=== PATIENT | male | born 1990 | race Caucasian/White ===

== ENCOUNTER → 2018-07-27 | Outpatient (CLI) | payer OTHER ==
[~2018-07-27] MED LIST: AGM875T PO; ASP81CT PO; ENAL5TAB PO; EPIN0.3P2 IM; HYDR1TAB PO; LSNP20T PO; OMEP20CA12 PO; PRD50T PO
[2018-07-27 15:14] LABS: HEMOGLOBIN 14.2 G/DL (13.3-17.7); RED CELL DISTRIBUTION WIDTH 12.5 % (10.0-14.5); WHITE BLOOD COUNT 5.3 10^3/uL (4.3-11.0)
[2018-07-27 15:41] LABS: ALANINE AMINOTRANSFERASE 19 U/L (0-55); ALBUMIN 4.3 GM/DL (3.2-4.5); ALKALINE PHOSPHATASE 47 U/L (40-136); BILIRUBIN,TOTAL 0.4 MG/DL (0.1-1.0); BUN/CREATININE RATIO 14; CARBON DIOXIDE 23 MMOL/L (21-32); CHLORIDE 109 MMOL/L (98-107); CREATININE SERUM 0.92 MG/DL (0.60-1.30); GFR ESTIMATED > 60; GLUCOSE 90 MG/DL (70-105); LIPASE 15 U/L (8-78); POTASSIUM 4.2 MMOL/L (3.6-5.0); SODIUM 141 MMOL/L (135-145); TOTAL PROTEIN 6.7 GM/DL (6.4-8.2)
== END ==
LOC: LAB 14:50
PROVIDERS: ATTEND Nurse Practitioner Family
DX: R10.13 Epigastric pain (principal)
CPT/HCPCS: 36415; 80053; 83690; 85027; 86677

== ENCOUNTER 2018-08-14 15:00 | Outpatient (CLI) | payer OTHER ==
[~2018-08-14] VITALS: Ht 185.4 cm; Wt 92.5 kg
[2018-08-14] MEDS ORDERED: ASPI-999 PO (15:37)
== END 2018-08-14 16:00 ==
LOC: PREOP 15:00
PROVIDERS: ATTEND Surgery
DX: Z01.818 Encounter for other preprocedural examination (principal)

== ENCOUNTER 2018-08-19 09:57 | Day surgery (SDC) | payer OTHER ==
[~2018-08-19] VITALS: Ht 185.4 cm; Wt 92.5 kg
[~2018-08-19 09:57] MED LIST changes: +ASPI-999 PO
[2018-08-19 10:15] VITALS: BP 116/82
[2018-08-19] MEDS ORDERED: LACTATED RINGERS 1,000 ML IV PRN (10:15)
[2018-08-19] MEDS ORDERED: LACTATED RINGERS 1,000 ML IV ONE (10:16)
--- NOTE | 2018-08-19 11:02 | Progress Note-Pre Operative ---
Pre-Operative Progress Note H&P Reviewed The H&P was reviewed, patient examined and no changes noted. Date Seen by Provider: Aug 19, 2018 Time Seen by Provider: 11: Date H&P Reviewed: Aug 19, 2018 Time H&P Reviewed: : Pre-Operative Diagnosis: gerd, epigastric abdominal pain, change in bowel habits BRIGHT PEÑALOZA DO Aug 19, 2018 11:02
[2018-08-19] MEDS ORDERED: HURRICAINE EXT TUBE (BENZOCAINE) XX ONE (11:15)
[2018-08-19] MEDS ORDERED: MIDAZOLAM 2 MG/2 ML (VERSED) VIAL ONE (11:46)
[2018-08-19] MEDS ORDERED: proPOfol 200 MG/20 ML (DIPRIVAN) VIAL IV ONE ×3 (11:46→12:20)
[2018-08-19] MEDS ORDERED: PANT40TA2 PO (12:36)
--- NOTE | 2018-08-19 12:39 | Discharge Inst-Simple/Standard ---
Discharge Inst-Standard Discharge Medications New, Converted or Re-Newed RX: Transmitted to Pharmacy Patient Instructions/Follow Up Plan of Care/Instructions/FU: 2 weeks peter Activity as Tolerated: Yes Discharge Diet: Regular Diet (high fiber) BRIGHT PEÑALOZA DO Aug 19, 2018 12:39
[2018-08-19 12:40] VITALS: BP 106/82
--- NOTE | 2018-08-19 12:43 | Progress Note-Post Operative ---
Post-Operative Progess Note Surgeon (s)/Director [facility] (s) Surgeon BRIGHT PEÑALOZA DO Director [facility]: na Pre-Operative Diagnosis gerd, epigastric abdominal pain, change in bowel habits Post-Operative Diagnosis hiatal hernia normal colon Procedure & Operative Findings Date of Procedure 08/19/18 Procedure Performed/Findings egd c biopsies, colonoscopy Anesthesia Type per mda Estimated Blood Loss Estimated blood loss (mL): none Specimens/Packing Specimens Removed antrum, ge BRIGHT PEÑALOZA DO Aug 19, 2018 12:43
[2018-08-19 13:00] VITALS: BP 116/82
[2018-08-19 13:23] VITALS: BP 116/82
--- NOTE | 2018-08-20 02:01 | OPERATIVE REPORT ---
DATE OF SERVICE: 08/19/2018 PREOPERATIVE DIAGNOSES: Gastroesophageal reflux disease, epigastric abdominal pain, change in bowel habits. POSTOPERATIVE DIAGNOSES: Hiatal hernia, normal colon. PROCEDURE: EGD with biopsies, colonoscopy. SURGEON: Bright Rankin DO ANESTHESIA: Per MDA. ESTIMATED BLOOD LOSS: None. COMPLICATIONS: None. Biopsies of the antrum and GE junction. INDICATIONS: The patient is a 28-year-old male with epigastric abdominal pain, reflux and change in bowel habits. He understood risks and benefits of procedures and wished to proceed with procedure. Consent was signed in the chart. DESCRIPTION OF PROCEDURE: The patient was taken to the endoscopy suite, placed in left lateral recumbent position. Timeout was performed. Scope was inserted in mouth, down the esophagus, stomach and into the duodenum without difficulty. There were no polyps, masses or ulcerations were visualized. Scope was slowly retracted back into the stomach where it was insufflated. There were no polyps, masses or ulcerations. Biopsy of the antrum was obtained. Scope was retroflexed noting a hiatal hernia. No other pathology noted. Scope was returned to its normal position, slowly withdrawn to the distal esophagus. There are no polyps, masses or ulcerations. Biopsy of the GE junction was obtained. Scope was then slowly retracted back and completely removed. Digital rectal exam was performed. There were no palpable polyps, masses or ulcerations. Scope was inserted in the rectum and advanced all the way to the cecum with minimal difficulty. Prep was adequate with irrigation and suction. Scope was then slowly retracted back. There were no polyps, masses or ulcerations within the cecum, ascending, transverse, descending and sigmoid colon. Once in the rectum, scope was retroflexed noting no other pathology. Scope was returned to its normal position, slowly withdrawn until completely removed. The patient tolerated procedure well without any complications and was taken to recovery room in stable condition. RECOMMENDATIONS: The patient to stay on Protonix 40 mg daily. The patient will follow up in two to three weeks to discuss pathology results. We will see how his symptoms are doing at that time. A repeat colonoscopy for screening guidelines. Job ID: [id number] DocumentID: [id number] Dictated Date: 08/19/2018 12:43:03 Gypsum Calciner Date: 08/19/2018 18:18:06 Dictated By: BRIGHT RANKIN DO
== END 2018-08-19 13:10 | disposition home or self-care (01) ==
LOC: ENDO 09:57
PROVIDERS: ATTEND Surgery
DX: R19.4 Change in bowel habit (principal); K21.9 Gastro-esophageal reflux disease without esophagitis; K44.9 Diaphragmatic hernia without obstruction or gangrene; F17.210 Nicotine dependence, cigarettes, uncomplicated; Z79.82 Long term (current) use of aspirin

== ENCOUNTER → 2020-06-14 | Outpatient (CLI) | payer OTHER ==
[~2020-06-14] MED LIST changes: +PANT40TA2 PO
[2020-06-14 10:06] LABS: ALANINE AMINOTRANSFERASE 24 U/L (0-55); ALBUMIN 4.2 GM/DL (3.2-4.5); ALKALINE PHOSPHATASE 42 U/L (40-136); BILIRUBIN,TOTAL 0.5 MG/DL (0.1-1.0); BUN/CREATININE RATIO 17; CALCIUM 8.9 MG/DL (8.5-10.1); CARBON DIOXIDE 21 MMOL/L (21-32); CHLORIDE 109 MMOL/L (98-107); CHOLESTEROL 180 MG/DL (< 200); CREATININE SERUM 0.93 MG/DL (0.60-1.30); GFR ESTIMATED > 60; GLUCOSE 97 MG/DL (70-105); HDL CHOLESTEROL 37 MG/DL (40-60); SODIUM 140 MMOL/L (135-145); TOTAL PROTEIN 6.7 GM/DL (6.4-8.2); TRIGLYCERIDES 96 MG/DL (<150); VLDL CHOLESTEROL 19 MG/DL (5-40)
== END ==
LOC: CARD 09:33
PROVIDERS: ATTEND Internal Medicine Cardiovascular Disease
DX: I08.0 Rheumatic disorders of both mitral and aortic valves (principal); E78.2 Mixed hyperlipidemia; I77.819 Aortic ectasia, unspecified site; Z95.818 Presence of other cardiac implants and grafts
CPT/HCPCS: 36415; 80053; 80061; 93306

== ENCOUNTER → 2020-07-15 | Outpatient (CLI) | payer OTHER ==
[~2020-07-15] MED LIST changes: +CATHETER FLUSH 10 ML SYR IV PRN; +HOLD METFORMIN - RECEIVED CONTRAST 20 ML VIAL IV SCH; +IOHEXOL 350 MG/ML 100 ML (OMNIPAQUE 350) VIAL IV ONE; +NS 100 ML (IVPB) BAG IV ONE
== END ==
LOC: RAD 09:20
PROVIDERS: ATTEND Physician Assistant
DX: I71.2 Thoracic aortic aneurysm, without rupture (principal)
CPT/HCPCS: 71275

== ENCOUNTER → 2022-06-12 | Outpatient (CLI) | payer SELFPAY ==
[~2022-06-12] MED LIST changes: -CATHETER FLUSH 10 ML SYR IV PRN; -HOLD METFORMIN - RECEIVED CONTRAST 20 ML VIAL IV SCH; -IOHEXOL 350 MG/ML 100 ML (OMNIPAQUE 350) VIAL IV ONE; -NS 100 ML (IVPB) BAG IV ONE
== END ==
LOC: LAB 07:53
PROVIDERS: ATTEND Urology
DX: Z30.2 Encounter for sterilization (principal)
CPT/HCPCS: 89321

== ENCOUNTER → 2022-08-06 | Outpatient (CLI) | payer SELFPAY | LOC: LAB 08:30 | PROVIDERS: ATTEND Urology | DX: Z98.52 Vasectomy status (principal) | CPT/HCPCS: 89321 ==